=== PATIENT | female | born 1985 | race Caucasian/White ===

== ENCOUNTER 2022-02-17 11:37 | Emergency (ER) | payer OTHER, SELFPAY ==
[2022-02-17 13:16] VITALS: BP 144/94; PULSE 63; RESP 20; TEMP 36.1; O2SAT 97; BMI 33.3
--- NOTE | 2022-02-17 14:09 | ED.GENADULT ---
HPI - General Adult General Chief complaint: General Medical Stated complaint: Methadone withdrawals Time Seen by Provider: 02/17/22 14:01 Source: patient Mode of arrival: ambulatory Limitations: no limitations History of Present Illness HPI narrative: Patient comes to the emergency room complaining of feeling irritable and angry. Patient also complaining of insomnia. Patient attributes his symptoms to methadone withdrawal. However, it has been over a month since she last used methadone. Patient states that she was on methadone for approximately 8 years. Patient stopped taking methadone because he just does not want to be on any medications. Patient complaining of feeling irritable, angry, insomnia. Denies chest pain, URI or UTI symptoms, no abdominal pain. Denies suicidal or homicidal ideation. Related Data Previous Rx's Medication Instructions Recorded clonidine HCl 0.2 mg tablet 0.2 mg PO TID PRN alcohol 02/17/22 withdrawal #10 tabs loperamide 2 mg capsule 2 mg PO Q4H PRN loose stool #10 02/17/22 caps ondansetron HCl 4 mg tablet 4 mg PO Q6H PRN nausea and 02/17/22 vomiting #14 tabs trazodone 100 mg tablet 100 mg PO BEDTIME PRN insomnia #10 02/17/22 tabs Allergies Allergy/AdvReac Type Severity Reaction Status Date / Time No Known Allergies Allergy Verified 02/17/22 13:15 Review of Systems Review of Systems: Constitutional : No Weight loss, No Fever, No Chills, No Night Sweats, No Fatigue, No Malaise, complaining of feeling that he is withdrawing methadone, irritable ENT/Mouth : No Hearing loss, No Ear Pain, No Nasal Congestion, No Sinus Pain, No Hoarseness, No sore throat, No Rhinorrhea, No Swallowing Difficulty Eyes: No Eye Pain, No Swelling, No Redness, No Foreign Body, No Discharge, No Vision Changes Cardiovascular : No Chest Pain, No SOB, No Dyspnea on Exertion, No Orthopnea, No Edema, No Palpitations Respiratory : No Cough, No Sputum, No Wheezing, No Smoke Exposure, No Dyspnea Gastrointestinal : No Nausea, No Vomiting, No Diarrhea, No Constipation, No abdominal Pain, No Hematochezia, No Melena Genitourinary : no irregular bleeding, No Dysuria, No Urinary Frequency, No Hematuria, No Urinary Incontinence, No Urgency, No Flank Pain, No Urinary Flow Changes, No Hesitancy Musculoskeletal : No joint pain, No Myalgias, No Joint Swelling Skin : No Skin Lesions, No rash Neuro : No Weakness, No Numbness, No Paresthesias, No Loss of Consciousness, No Dizziness, No Headache, complaining of insomnia Psych : No Anxiety/Panic, No Depression, No SI/HI/AH/VH, No Social Issues, feeling irritable, angry Heme/Lymph: No Bruising, No Bleeding,No Lymphadenopathy Endocrine : No Polyuria, No Polydipsia, No Temperature Intolerance [facility] Past Medical History Medical History (Updated 02/17/22 @ 14:16 by Nicole Hill MD) Substance abuse Social History Social History Advance Directives: No Advance Directives Information Provided: No Physical Exam ED Vital Signs: Vital Signs - 24 hr 02/17/22 13:16 Temperature 97.0 F Pulse Rate 63 Respiratory Rate 20 Blood Pressure 144/94 H Pulse Oximetry 97 Oxygen Delivery Method Room Air BMI result Body Mass Index 33.3 Const Other: Appearance: Alert. Oriented X3. No acute distress. Eyes: Pupils equal, round and reactive to light. ENT: Pharynx normal. Neck: Normal inspection. Neck supple. No lymph nodes noted. No crepitus CVS: Normal heart rate and rhythm. Pulses normal. Normal S1 and S2 Respiratory: No respiratory distress. Breath sounds normal. No Wheezing. No rales Abdomen: Soft and nontender. No rigidity. No distention. Skin: Skin warm and dry. Normal skin color. Normal skin turgor. Extremities: No lower extremity edema. No Lacerations. No Rash Neuro: Oriented X 3. No motor deficit. No sensory deficit. Moving all extremities. No slurred speech. CN 2 through 12 grossly intact Psych: calm, cooperative, angry Course Course Course Narrative: I offered patient to the patient a referral to our team to be restarted on methadone, patient declined. I also asked the patient if he is interested in Suboxone, declined. Patient declined being seen by the care team or [facility]. Behavioral health network consult was declined as well Patient stated that she just wants a pill to feel better . I discussed with the patient that the medication will not provide 100% immediate relief, it will be given several doses of medications to feel comfortable. It has been over a month since patient claims to have used methadone. Unclear if methadone/opioid withdrawal is actually causing the patient's symptoms. Further medical evaluation was offered including labs, patient stated I don't know why I came, I should have stayed home and asked to be discharged Patient given p.o. Zofran, loperamide, clonidine, 1st dose in the emergency room and provided with presciptions and an additional prescription of trazodone to help with insomnia Discharge Plan Discharge Clinical Impression: Opiate withdrawal Patient Disposition: Home, Self-Care Instructions: Opioid Withdrawal (ED) Additional Instructions: Please follow-up with your primary care physician tomorrow. If you have any worsening or new symptoms, please return to the emergency room or call 911 Prescriptions: New clonidine HCl 0.2 mg tablet 0.2 mg PO TID PRN (Reason: alcohol withdrawal) Qty: 10 0RF Rx Instructions: * reason: P.r.n. opiate withdrawal symptoms ondansetron HCl 4 mg tablet 4 mg PO Q6H PRN (Reason: nausea and vomiting) Qty: 14 0RF loperamide 2 mg capsule 2 mg PO Q4H PRN (Reason: loose stool) Qty: 10 0RF Rx Instructions: administer after each loose stool until symptoms controlled; do not exceed 8 mg per 24 hrs trazodone 100 mg tablet 100 mg PO BEDTIME PRN (Reason: insomnia) Qty: 10 0RF Interventions: ED Discharge Assessment Last Done: 02/17/22 14:32 Discharge Date/Time: 02/17/22 14:33
[2022-02-17] MEDS: Loperamide HCl 2 MG CAPSULE PO (14:28)
[2022-02-17] MEDS: cloNIDine HCL 0.2 MG TABLET PO (14:28)
== END 2022-02-17 14:33 | disposition home or self-care (01) ==
PROVIDERS: Emergency Provider Emergency Medicine
DX: F11.23 Opioid dependence with withdrawal (principal); R45.4 Irritability and anger
CPT/HCPCS: 99282; 99283

== ENCOUNTER 2022-02-17 15:47 | Emergency (ER) | payer OTHER, SELFPAY ==
[2022-02-17 16:47] VITALS: BP 117/70; PULSE 56; RESP 18; TEMP 36.6; O2SAT 96; BMI 33.3
--- NOTE | 2022-02-17 17:34 | ED_ITS ---
HPI - Psych General Chief Complaint: Psychiatric Symptoms Stated Complaint: SI Time Seen by Provider: 02/17/22 17:34 Source: patient Mode of arrival: ambulatory Limitations: no limitations History of Present Illness HPI Narrative: Patient is a 36 year old trans male who goes by the name Juan and uses he/him pronouns, presenting to the emergency department today with feelings of agitation and aggression. Patient states that he was on methadone and has gotten off of everything but is now having excessive feelings of aggression and agitation. Patient denies any dizziness, lightheadedness, abdominal pain, nausea, vomiting, fever, chills, blurry vision, double vision, loss of vision, chest pain, difficulty breathing, shortness of breath, back pain, night sweats, pain with urination, increased urinary frequency, increased urinary urgency, blood in his urine or stool, syncope or a near syncopal episode, recent trauma or falls, bowel incontinence, bladder incontinence, bowel retention, bladder re tention, or any other complaints at this time. Patient states that [he/she] has a history of [insert medical history].? MD complaint: other (aggression) Onset (ago): month(s) (2) Duration: intermittent Relieving factors: none Exacerbating factors: none Associated psychiatric symptoms: none Associated symptoms: denies other symptoms Treatments prior to arrival: none Related Data Previous Rx's Medication Instructions Recorded clonidine HCl 0.2 mg tablet 0.2 mg PO TID PRN alcohol 02/17/22 withdrawal #10 tabs loperamide 2 mg capsule 2 mg PO Q4H PRN loose stool #10 02/17/22 caps lorazepam 2 mg tablet (Ativan) 2 mg PO DAILY PRN agitation 14 02/17/22 days #14 tabs ondansetron HCl 4 mg tablet 4 mg PO Q6H PRN nausea and 02/17/22 vomiting #14 tabs trazodone 100 mg tablet 100 mg PO BEDTIME PRN insomnia #10 02/17/22 tabs Allergies Allergy/AdvReac Type Severity Reaction Status Date / Time No Known Allergies Allergy Verified 02/17/22 13:15 Review of Systems Constitutional: Constitutional: Reports no additional constitutional complaints, Denies chills, Denies fever(s) and Denies night sweats Eyes: Eyes: Reports no additional eye complaints, Denies blurry vision, Denies change in vision, Denies diplopia, Denies eye discharge, Denies loss of vision and Denies eye pain ENT: Denies dizziness Cardiovascular: Cardiovascular: Reports no additional cardiovascular complaints, Denies chest pain, Denies lightheadedness, Denies Loss of Consciousn ess and Denies dyspnea Respiratory: Respiratory: Reports no additional respiratory complaints and Denies dyspnea Gastrointestinal: Gastrointestinal: Reports no additional gastrointestinal complaints, Denies abdominal pain, Denies melena, Denies hematochezia, Denies change in bowel habits and Denies change in stool character Genitourinary: Genitourinary: Denies hematuria, Denies urinary frequency, Denies dysuria, Denies urinary incontinence, Denies urinary hesitancy and Denies urinary urgency Musculoskeletal: Musculoskeletal: Reports no additional musculoskeletal complaints, Denies numbness and Denies tingling Neurologic: Denies dizziness, Denies loss of vision, Denies numbness and Denies tingling Psychiatric: Psychiatric: Reports no additional psychiatric complaints Comments: aggression Endocrine: Endocrine: Reports no additional endocrine complaints Hematologic/Lymphatic: Hematologic/Lymphatic: Reports no additional hematologic/lymphatic complaints Allergic/Immunologic: Allergic/Immunologic: Reports no additional allergic/immunologic complaints PMFSH Past Medical History Attestation statement: The following information was validated with the patient. Source: old records reviewed Medical History Substance abuse Social History Social History Advance Directives: No Advance Directives Information Provided: No Physical Exam Vital Signs: Vital Signs: Last Vital Signs Temp 97.8 F 02/17/22 16:47 Pulse 56 02/17/22 16:47 Resp 18 02/17/22 16:47 BP 117/70 02/17/22 16:47 Pulse Ox 96 02/17/22 16:47 O2 Del Method 02/17/22 16:47 BMI result Body Mass Index 33.3 Const: General: cooperative, no acute distress, alert and awake Nutritional Appearance: well nourished Orientation/consciousness: patient oriented x3 Limitations: no limitations HEENT: Head: Yes normal to inspection and Yes atraumatic Ears: hearing grossly normal bilaterally and external ears normal General nose exam: Normal external nose present, no nasal discharge noted and no epistaxis Face and sinus: Yes normal facial exam, No abrasion and No laceration Mouth: Normal oral and palatal mucosa present, no drooling and no muffled voice Eyes: General: appearance normal, both eyes and all related structures Periorbital: periorbital findings normal Eyelids: Yes eyelids normal Conjunctivae: conjunctivae normal Pupils: Equal, round and reactive pupils present EOM: EOMs intact bilaterally Neck: Neck: Yes normal visual inspection, Yes full ROM and Yes no lymphadenopathy Chest: Chest palpation & inspection: normal inspection of the chest Resp: Effort & Inspection: normal respiratory effort and able to speak in complete sentences Auscultation: clear to auscultation bilaterally Cardio: Rate: regular rate Rhythm: regular rhythm GI: Inspection: Yes normal to inspection Neuro: General: patient oriented x3 and moves all extremities Cranial nerves: Yes Equal, round and reactive pupils present Cognition (Neuro): n ormal cognition Motor exam (neuro): 5/5 motor strength present throughout Sensory Exam: Normal double simultaneous stimulation for sensation Coordination: [id number] test normal Extrem: General: Yes normal to inspection, Yes full ROM and Yes capillary refill normal Psych: Appearance: grossly normal Mental Status: mental status grossly normal Affect: normal affect Attitude: cooperative Thought process: Normal thought process present Thought content: Normal thought content present Insight: Good insight present (Psych) MDM - Psych MDM Narrative Medical decision making narrative: Patient is a 36 year old male presenting to the emergency department today with aggression and agitation. Patient's physical exam was unremarkable. Patient's b lood work was unremarkable. Patient's COVID-19 test was positive. I explained my physical exam findings as well as all test results to the patient. I answered all questions asked by the patient. Patient received PO Ativan which he stated helped his symptoms significantly. The patient and I had an extensive conversation on how to best help him at this time. We decided together, a short course of Ativan and close follow up with his psychiatrist is the best option for him. I stressed the importance of the patient taking his medication as prescribed. I stressed the importance of the patient following up with his primary care provider. I stressed the importance of the patient returning to the emergency department immediately if his symptoms were to worsen or if he were to develop any dizziness, shortness of breath, difficulty breathing, chest pain, blurry vision, loss of vision, nausea, vomiting, abdominal pain, fever, chills, back pain, or any other complaints. Patient and the patient's mother verbalized agreement and understanding with this treatment plan and discharge. Medical Records Attestation: I reviewed the patient's medical records. Lab Data Attestation: I reviewed the patient's lab results. Result diagrams: 02/17/22 18:30 02/17/22 18:30 Labs: Lab Results 02/17/22 02/17/22 02/17/22 Range/Units 18:30 18:30 18:30 WBC 7.4 (4.8-10.8) X10*3/uL RBC 5.55 H (4.20-5.50) X10*6/uL Hgb 16.7 H (12.0-16.0) g/dl Hct 49.7 H (37.0-47.0) % MCV 89.5 (80.0-98.0) fL MCH 30.1 (27.0-33.0) pg MCHC 33.6 (31.0-35.0) g/dl RDW 15.8 (11.0-16.0) % Plt Count 197 (160-400) X10*3/uL MPV 10.8 (9.4-12.3) fL Immature Gran % (Auto) 0.3 (0.0-0.4) % Neut % (Auto) 68.8 (45-73) % Lymph % (Auto) 24.5 (20-40) % Collier % (Auto) 5.8 (2-11) % Eos % (Auto) 0.3 (0-4) % Baso % (Auto) 0.3 (0-2) % Lymph # (Auto) 1.8 (1.2-4.9) X10*3/uL Collier # (Auto) 0.4 (0.1-1.2) X10*3/uL Eos # (Auto) 0.0 (0.0-0.4) X10*3/uL Baso # (Auto) 0.0 (0.0-0.2) X10*3/uL Abs Immat Gran (auto) 0.02 (0.00-0.03) X10*3/uL Absolute Neuts (auto) 5.1 (2.0-8.3) x10*3/uL Absolute Nucleated RBC 0.000 (0.0-0.012) X10*3/uL Nucleated RBC % (auto) 0.0 (0.0-0.2) /100WBC Sodium 139 (135-145) mmol/L Potassium 4.4 (3.3-5.1) mmol/L Chloride 103 (96-108) mmol/L Carbon Dioxide 25 (22-29) mmol/L Anion Gap 15 (12-20) BUN 9 (9-16) mg/dL Creatinine 1.05 (0.5-1.4) mg/dL Estim Creat Clear Calc 81.6 Estimated GFR 59 Random Glucose 99 (60-115) mg/dL Calcium 9.7 (8.4-10.2) mg/dL Total Bilirubin 0.6 (0.0-1.0) mg/dL AST 32 H (5-31) U/L ALT 31 (0-31) U/L Alkaline Phosphatase 76 (39-117) U/L Total Protein 8.3 H (6.5-8.0) g/dL Albumin 5.1 H (3.5-5.0) g/dL COVID-19 (SUSIE) Positive A (Negative) COVID-19 Clin Com See Note Discharge Plan Discharge Clinical Impression: Agitation, COVID-19 Patient Disposition: Home, Self-Care Instructions: COVID-19 (Coronavirus Disease 2019) (ED) Additional Instructions: Follow up with your primary care provider and the [facility] as discussed. Return to the emergency department immediately if your symptoms worsen or if you develop any dizziness, shortness of breath, difficulty breathing, chest pain, blurry vision, loss of vision, nausea, vomiting, abdominal pain, fever, chills, back pain, or any other complaints. Prescriptions: New lorazepam [Ativan] 2 mg tablet 2 mg PO DAILY PRN (Reason: agitation) 14 Days Qty: 14 0RF No Action clonidine HCl 0.2 mg tablet 0.2 mg PO TID PRN (Reason: alcohol withdrawal) Qty: 10 0RF Rx Instructions: * reason: P.r.n. opiate withdrawal symptoms ondansetron HCl 4 mg tablet 4 mg PO Q6H PRN (Reason: nausea and vomiting) Qty: 14 0RF loperamide 2 mg capsule 2 mg PO Q4H PRN (Reason: loose stool) Qty: 10 0RF Rx Instructions: administer after each loose stool until symptoms controlled; do not exceed 8 mg per 24 hrs trazodone 100 mg tablet 100 mg PO BEDTIME PRN (Reason: insomnia) Qty: 10 0RF Referrals: Sharita Roque [employer] [Primary Care Provider] - (Call to follow up with your PCP.) Interventions: ED Discharge Assessment Last Done: 02/17/22 20:05 Discharge Date/Time: 02/17/22 20:08 Print Language: Cambodian
--- NOTE | 2022-02-17 18:23 | PC.NURSE ---
CARE Team at bedside at this time
[2022-02-17 18:40] LABS: MANUAL DIFF FLAG NO
[2022-02-17 18:42] LABS: Basophils Percent Auto 0.3 % (0-2); Eosinophils Percent Auto 0.3 % (0-4); Hematocrit 49.7 % (37.0-47.0); Hemoglobin 16.7 g/dl (12.0-16.0); Imm Gran Abs Auto 0.02 X10*3/uL (0.00-0.03); Imm Gran Pct Auto 0.3 % (0.0-0.4); Lymphocytes Absolute Auto 1.8 X10*3/uL (1.2-4.9); Lymphocytes Percent Auto 24.5 % (20-40); Mean Corpuscular HGB Conc 33.6 g/dl (31.0-35.0); Mean Corpuscular Hemoglobin 30.1 pg (27.0-33.0); Mean Corpuscular Volume 89.5 fL (80.0-98.0); Mean Platelet Volume 10.8 fL (9.4-12.3); Monocytes Absolute Auto 0.4 X10*3/uL (0.1-1.2); Monocytes Percent Auto 5.8 % (2-11); Neutrophils Absolute Auto 5.1 x10*3/uL (2.0-8.3); Neutrophils Percent Auto 68.8 % (45-73); Platelet Count 197 X10*3/uL (160-400); Red Blood Count 5.55 X10*6/uL (4.20-5.50); Red Cell Distribution Width 15.8 % (11.0-16.0); White Blood Count 7.4 X10*3/uL (4.8-10.8)
[2022-02-17 18:53] LABS: COVID-19 Test Positive (Negative)
[2022-02-17 18:59] LABS: Alanine Aminotransferase 31 U/L (0-31); Albumin Level 5.1 g/dL (3.5-5.0); Alkaline Phosphatase 76 U/L (39-117); Anion Gap 15 (12-20); Aspartate Amino Transferase 32 U/L (5-31); Bilirubin Total 0.6 mg/dL (0.0-1.0); Blood Urea Nitrogen 9 mg/dL (9-16); Calcium 9.7 mg/dL (8.4-10.2); Carbon Dioxide 25 mmol/L (22-29); Chloride 103 mmol/L (96-108); Creatinine Clr Calc Pharmacy 81.6; Estimated Glomerular Filt Rate 59; Glucose Random 99 mg/dL (60-115); Potassium 4.4 mmol/L (3.3-5.1); Sodium 139 mmol/L (135-145); Total Protein 8.3 g/dL (6.5-8.0)
--- NOTE | 2022-02-17 19:23 | MHC.CARE ---
CARE team consult requested for 36 year old transgender male (he/him) who self presented to the ED irritable and agitated with complaints of methadone withdrawal. This is pt's second visit to the ED today with similar presentation. Pt was seen in the main ED 13H bed, mother was at bedside. Pt refused to engage with this contract technical writer or answer questions for the majority of this interaction. Pt's mother provided some background and details about pt's recent mood lability. Pt and his mother were both very firmly rooted in the belief that the pt is still experiencing withdrawal symptoms from being tapered off of methadone approximately two months ago, as there is a correlation for when pt's mood changes began and when the methadone taper was completed. Pt was receiving methadone through [facility] in [place] and had been on maintenance for 8 years. Pt's mother was visibly upset and difficult to redirect at times, expressing the frustration of repeatedly trying to find help for the pt and being told that there are significant wait times for treatment,etc. This contract technical writer offered to get information on health centers that provide specialized care for individuals on the transgender spectrum. CARE team met with ED provider shortly after this interaction. ED provider reported that she had a more productive conversation with the pt after his mother left to smoke a cigarette outside, and that the pt was more receptive and better able to express himself one on one. This contract technical writer returned to speak with the pt and review information gathered for [facility] and the [facility] LGBTQ+ health navigation program, both in [facility]. Pt was more engaged and shared about his frustration with the transition process, stating that he has felt like a completely different person since he started taking testosterone 9 months ago. He reported that it was all he ever wanted and isn't going to stop the treatment despite how he has been feeling. He also expressed that he feels some resentment toward society for how he was treated and regarded while growing up and now that the damage is done there is better access to supportive communities are services for trans folk. He presented with feelings of helplessness and hopelessness but had some future orientation and openness to connecting with trans-informed care. Pt's PCP is conveniently located at [facility], after transferring their practice from another [facility] medical group. His testosterone is managed by his PCP. Pt has been encouraged to contact his PCP office tomorrow to request a sooner appointment (next one is in a couple months) and to inquire about other services that he could be connected with, such as psychiatry and community outreach and support. At this time pt does not require any further evaluation and is appropriate for discharge home with family.
[2022-02-17] MEDS: LORazepam 1 MG TABLET 2 MG PO (19:24)
--- NOTE | 2022-02-17 20:05 | PC.NURSE ---
I assumed care of this pt at 1900. Pt was in the process of being discharged on my initial assessment. The pt was given PO Ativan at time of DC. She stated she was familiar with the med, has had it before and understands its uses and indications. She verbalized an understanding of all DC orders and she ambulated out of the ED independently and with steady gait
== END 2022-02-17 20:08 | disposition home or self-care (01) ==
PROVIDERS: Physician Assistant Medical; Emergency Provider Emergency Medicine; PCP Nurse Practitioner Family
DX: U07.1 COVID-19 (principal); R45.4 Irritability and anger; F64.0 Transsexualism
CPT/HCPCS: 80053; 85025; 87635; 99282; 99284

== ENCOUNTER 2022-02-23 15:12 | Emergency (ER) | payer OTHER, SELFPAY ==
[2022-02-23 15:21] VITALS: BP 101/68; PULSE 101; O2SAT 97
[2022-02-23 16:06] VITALS: BP 106/75; PULSE 87; RESP 22; TEMP 36.8; O2SAT 95; BMI 33.3
== END 2022-02-23 22:40 | disposition left against medical advice (07) ==
PROVIDERS: Emergency Provider Emergency Medicine
DX: F33.1 Major depressive disorder, recurrent, moderate (principal)
CPT/HCPCS: 99281

== ENCOUNTER 2024-10-06 16:02 | Outpatient (AMB) | payer OTHER, SELFPAY ==
[2024-10-06 16:11] VITALS: BP 140/80; PULSE 82; TEMP 36.8; O2SAT 97; BMI 27.1
--- NOTE | 2024-10-06 16:11 | AM.OFFWIN_ITS ---
Intake Vital Signs 3 10/06/24 16:11 Height 5 ft 5 in Weight 163 lb BMI 27.1 BP 140/80 H Blood Pressure Location Rt brachial Position Sitting Pulse 82 Pulse Source Pulse Oximeter Temp 98.2 F Temp Source Oral Pulse Oximetry (%) 97 Oxygen Delivery Method Room Air Intake Visit Reasons: FITTER UP Mouth pain Intake Note: Patient here for top left tooth pain that has been present for about 4 days. Patient Tobacco Use Status: Current everyday Tobacco user Allergies No Known Allergies Allergy (Verified 10/06/24 16:15) Do you need a note to return to daycare/school/sports/work: No HPI HPI Comments 2 History of Present Illness0 Details History of Present Illness - The patient is a 39-year-old female pr esenting with dental pain, persisting for 4 days. Denies fevers. . - The patient has not sought dental assi stance prior to this visit. - No recorded allergies to antibiotics e xist. - Exposure to an environment with freque nt sick individuals was noted. Physical Exam General: Cooperative, healthy appearing, comfortable, no acute distress and well developed Orientation: Patient oriented x3 Limitations: No limitations Head: Normal to inspection Ears: Hearing grossly normal bilaterally Nose: Normal external nose present Face and sinus: Normal facial exam Eyes: Appearance normal, both eyes and all related structures Neck: Normal visual inspection and Yes full ROM Respiratory: Normal respiratory effort and able to speak in complete sentences. Skin: No rashes or lesions noted Neuro: Patient oriented x3 Extremities: Normal to inspection [facility] Medical History Substance abuse Social History Patient Tobacco Use Status: Current everyday Tobacco user Review of Systems Const All systems reviewed & are unremarkable except as noted in HPI and below Physical Exam Vital Signs: Last Vital Signs Temp 98.2 F 10/06/24 16:11 Pulse 82 10/06/24 16:11 BP 140/80 H 10/06/24 16:11 Pulse Ox 97 10/06/24 16:11 Oxygen Delivery Method Room Air 10/06/24 16:11 BMI result Body Mass Index 27.1 HEENT Teeth and gingiva: abnormal tooth and associated gingiva (as below) and poor dentition Teeth image: 2 1. TTP, erythema, several dental caries, partially missing #12, #11 missing Assessment & Plan Assessment & Plan (1) Dental infection: Code(s): K04.7 - Periapical abscess without sinus Plan: Plan The patient is diagnosed with a Dental infection and was initiated on an antibiotic regimen of Penicillin, 500 mg every 8 hours for 7 days, aimed at mitigating the infection. Warm salt water rinses and Aleve every 12 hours were recommended for pain and inflammation management. The importance of seeking dental treatment was highlighted, and suggestions for local clinics were provided. It was advised to take the antibiotics ahead of any dental appointment to ensure preparedness. The urgency for dental evaluation to avoid potential complications was iterated. Patient was informed and verbally consented to the use of an ambient scribe for clinic note documentation during this visit. Medications: New 2 penicillin V potassium 500 mg PO Q8H 7 days 21 tabs 0RF naproxen 500 mg PO Q12H PRN 20 tabs 0RF pain Discontinued 2 clonidine HCl * reason: P.r.n. opiate withdrawal symptoms Discontinued Reason: Patient no longer taking 0.2 mg PO TID PRN 10 tabs 0RF alcohol withdrawal loperamide administer after each loose stool until symptoms controlled; do not exceed 8 mg per 24 hrs Discontinued Reason: Patient no longer taking 2 mg PO Q4H PRN 10 caps 0RF loose stool lorazepam (Ativan) Discontinued Reason: Patient no longer taking 2 mg PO DAILY 14 days PRN 14 tabs 0RF agitation Coding Level of Care Code New Pt Level 3 (05586) Diagnoses Dental infection K04.7
--- OUTSIDE RECORDS SUMMARY | 2024-10-06 16:48 | XMS_ITS | Clinical Summary ---
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 Role Phone Unavailable Primary Care Provider Unavailabl e Surgical History Surgery Date Site/Laterality Comments OTHER SURGICAL HISTORY 08/18/13 PROCEDURE: [place] CONIZATION CERVIX W/WO D&C RPR KNIFE/LASER; COMMENT: CE 3 Medical History Medical History Date Comments Acne DX:Acne OCD (obsessive compulsive disorder) DX:OCD (obsessive compulsive disorder) Bipolar disorder (CMS/HCC) DX:Bi polar disorder (HCC) Alcohol dependence (CMS/HCC) DX: Alcohol dependence (HCC) Substance abuse (CMS/HCC) DX:Sub stance abuse (HCC); COMMENT: marijuana, crack, cocaine, heroin in distant past History of suicide attempt 08/13/2012 DX:Hi story of suicide attempt Family History Medical History Relation Name Comments Breast cancer Aunt 1 maternal aunt Other: mental illness Other 1 Relation Name Status Comments Aunt 1 Aunt 2 Other 1 Other 2 Social History Tobacco Use Types Packs/Day Years Used Date Smoking Tobacco: Every Day Alcohol Use Standard Drinks/Week Comments No 0 (1 standard drink = 0.6 oz pur e alcohol) Comments Unknown Sex and Gender Information Value Date Recorded Sex Assigned at Not on file Legal Sex Female 6:56 PM EST Gender Identity Not on file Sexual Orientation Not on file Obstetrics History Plan of Treatment Health Maintenance Due Date Last Done Comments Breast Cancer Screening 1984 Hepatitis B Vaccines (1 of 3 - 19+ 3-dose series) 2003 Cervical Cancer Screening: P ap Smear 2005 DTaP,Tdap,and Td Vaccines (2 - Td or Tdap) 08/12/2022 08/12/2012 COVID-19 Vaccine (2023-2 5 season) 2024 Influenza Vaccine (#1) 2024 , 08/12/2012 HIB Vaccines Aged Out No longer eligi ble based on patient's age to complete this topic HPV Vaccines Aged Out No longer eligi ble based on patient's age to complete this topic Hepatitis A Vaccines Aged Out No long er eligible based on patient's age to complete this topic IPV Vaccines Aged Out No longer eligi ble based on patient's age to complete this topic MMR Vaccines Aged Out No longer eligi ble based on patient's age to complete this topic Meningococcal ACWY Vaccine Aged Out N o longer eligible based on patient's age to complete this topic Meningococcal B Vacine Aged Out No lo nger eligible based on patient's age to complete this topic Pneumococcal Vaccine: Pediatrics (0 to 5 Years) and At-Risk Patients (6 to 64 Years) Aged Out No longer eligible b ased on patient's age to complete this topic RSV Immunization Patients Under 20 months Aged Out No longer eligible b ased on patient's age to complete this topic Varicella Vaccines Aged Out No longer eligible based on patient's age to complete this topic
== END 2024-10-06 16:43 | disposition home or self-care (01) ==
PROVIDERS: Visit Provider Physician Assistant
DX: K04.7 Periapical abscess without sinus (principal)

== ENCOUNTER → 2024-10-06 16:02 | Outpatient (BNVA) | payer OTHER, SELFPAY | PROVIDERS: Visit Provider Physician Assistant | DX: K04.7 Periapical abscess without sinus (principal) | CPT/HCPCS: 99202 ==

== ENCOUNTER 2025-05-30 13:08 | Outpatient (AMB) | payer OTHER, SELFPAY ==
[2025-05-30 13:14] VITALS: BP 106/60; PULSE 91; TEMP 37; O2SAT 95; BMI 30.3
--- NOTE | 2025-05-30 13:14 | MHC.OFFWIV ---
Intake Vital Signs 05/30/25 13:14 Height 5 ft 5 in Weight 182 lb BMI 30.3 BP 106/60 Blood Pressure Location Rt brachial Position Sitting Pulse 91 Pulse Source Pulse Oximeter Temp 98.6 F Temp Source Oral Pulse Oximetry (%) 95 Oxygen Delivery Method Room Air Intake Visit Reasons: EP large cut on lt forearm Intake Note: pt presents with laceration on left forearm sustained 3 days ago after cutting arm on his drinking glass that broke when he tripped and fell at home, states he went to [facility] yesterday but left d/t long wait time Patient Tobacco Use Status: Current everyday Tobacco user Allergies Latex, Natural Rubber Allergy (Mild, Verified 05/30/25 13:17) Rash Do you need a note to return to daycare/school/sports/work: No HPI HPI Comments History of Present Illness Details History of Present Illness - The patient is a 40-year-old assigned female at and identifies as male presenting with a laceration on the left arm. - The laceration occurred three days ago when the patient slipped on a wet floor and fell onto a glass he was holding, resulting in a cut on his left volar aspect of the arm. - He states that it was accidental and not intentional. - He denies any self harm. - The patient managed the wound at home, cleaning it thoroughly and wrapping it. - The patient has been putting orajel and bacitracin on the wound daily. - The patient reports no numbness, tingling, or significant redness, to the arm. - The patient has no discharge or fever. - The patient has no pain to the arm, wrist or hand. - He denies bleeding, streaking, hand pain, or wrist pain. Physical Exam General: Cooperative, healthy appearing, comfortable, no acute distress and well developed Orientation: Patient oriented x3 Limitations: No limitations Respiratory: Normal respiratory effort and able to speak in complete sentences. Clear to auscultation bilaterally Cardiovascular: Regular rate and rhythm. Normal S1 and S2. No m/r/g noted. Pulses are 2+ on the UE. Skin: No rashes or lesions noted. Vertical 5cm superficial healing open laceration noted on the volar aspect of the left arm. No erythema noted. No discharge or bleeding noted. No induration noted. Neuro: Sensation is intact. Extremities: Normal to inspection. No deformity noted. No swelling noted. FROM of the left wrist and elbow. No TTP of the elbow, forearm, wrist, or hand. Supination and pronation is intact. Hand ad operations associate is intact. Strength is 5/5 on the UE. Patient was informed and verbally consented to the use of an ambient scribe for clinic note documentation during this visit. [facility] Medical History Substance abuse Social History Patient Tobacco Use Status: Current everyday Tobacco user Review of Systems Const All systems reviewed & are unremarkable except as noted in HPI and below Physical Exam Vital Signs: Last Vital Signs Temp 98.6 F 05/30/25 13:14 Pulse 91 05/30/25 13:14 BP 106/60 05/30/25 13:14 Pulse Ox 95 05/30/25 13:14 Oxygen Delivery Method Room Air 05/30/25 13:14 BMI result Body Mass Index 30.3 Assessment & Plan Assessment & Plan (1) Laceration of arm: Code(s): S41.119A - Laceration without foreign body of unspecified upper arm, initial encounter Qualifiers: Encounter type: initial encounter Laterality: left Qualified Code(s): S41.112A - Laceration without foreign body of left upper arm, initial encounter Plan Most likely open laceration healing by secondary intention No laceration repair was done as the wound is 3 days old. plan - The patient will be prescribed Bactroban ointment to apply three times daily to prevent infection. - Oral Keflex will be prescribed as a precautionary measure against infection. - The patient will be advised to avoid wrapping the wound too tightly to prevent circulation issues. - Keep the wound clean and dry. - Tylenol as needed for pain - Watch for signs of infection such as discharge, redness, warmth, fever, etc. - follow up with PCP Medications: New mupirocin 2% 1 appl topical TID 22 grams 0RF cephalexin 500 mg PO Q6H 28 caps 0RF acetaminophen 500 mg PO Q6H PRN 20 tabs 0RF fever Coding Level of Care Code Est Pt Level 3 (26155) Diagnoses Laceration of left upper extremity, initial encounter S41.112A Encounter type: initial encounter Laterality: left
--- OUTSIDE RECORDS SUMMARY | 2025-05-30 15:54 | XMS_ITS | Clinical Summary ---
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 Name Role Phone Unavailable Primary Care Provider Unavailabl e Surgical History Surgery Date Site/Laterality Comments OTHER SURGICAL HISTORY 08/18/13 PROCEDURE: [place] CONIZATION CERVIX W/WO D&C RPR KNIFE/LASER; COMMENT: CE 3 Medical History Medical History Date Comments Acne DX:Acne OCD (obsessive compulsive disorder) DX:OCD (obsessive compulsive disorder) Bipolar disorder (CMS/HCC V2 4, CMS/HCC V28) DX:Bipolar disorder (HCC) Alcohol dependence (CMS/HCC V24, CMS/HCC V28) DX:Alcohol dependence (HCC) Substance abuse (CMS/HCC V24 , CMS/HCC V28) DX:Substance abuse (HCC); CO MMENT: marijuana, crack, cocaine, heroin in distant past [...] Cervical Cancer Screening: P ap Smear 2005 HPV Vaccines (1 - 3-dose SCD M series) 2011 DTaP,Tdap,and Td Vaccines (2 - Td or Tdap) 08/12/2022 08/12/2012 Depression Screening 07/26/2024 COVID-19 Vaccine (1 - 2023-2 5 season) 2025 Influenza Vaccine (#1) 2025 3, 08/12/2012 RSV Immunization Adult Patients (1 - 1-dose 75+ series) 2059 HIB Vaccines Aged Out No longer eligi [...] age to complete this topic Meningococcal B Vaccine Aged Out No l onger eligible based on patient's age to complete this topic Pneumococcal Vaccine: Pediatrics (0 to 5 Years) and At-Risk Patients (6 to 49 Years) Aged Out No longer eligible b ased on patient's age to complete this topic RSV Immunization Patients Under 20 months Aged Out No longer eligible b ased on patient's age to complete this topic Varicella Vaccines Aged Out No longer eligible based on patient's age to complete this topic
== END 2025-05-30 14:35 | disposition home or self-care (01) ==
PROVIDERS: Visit Provider Physician Assistant Medical
DX: S41.112A Laceration without foreign body of left upper arm, initial encounter (principal)

== ENCOUNTER → 2025-05-30 13:08 | Outpatient (BNVA) | payer OTHER, SELFPAY | PROVIDERS: Visit Provider Physician Assistant Medical | DX: S41.112A Laceration without foreign body of left upper arm, initial encounter (principal); W01.0XXA Fall on same level from slipping, tripping and stumbling without subsequent striking against object, initial encounter; W25.XXXA Contact with sharp glass, initial encounter; Y93.9 Activity, unspecified; Y92.9 Unspecified place or not applicable; Y99.9 Unspecified external cause status | CPT/HCPCS: 99212 ==